=== PATIENT | female | born 1975 | race Two or more races ===

== ENCOUNTER 2017-08-07 13:14 | Emergency (ER) | payer OTHER ==
[2017-08-07 13:18] VITALS: BP 149/92; PULSE 96; TEMP 98.7; BMI 37.3
[2017-08-07 14:21] LABS: BASO % 1.1 % (0-2.0); EOS % 0.6 % (0-4.5); HEMATOCRIT 41.2 % (32.4-45.2); MCHC 33.8 g/dl (32.0-36.0); MEAN PLT VOLUME 8.3 fl (7.5-11.1); MONO % 5.8 % (3.8-10.2); NEUT % 60.5 % (42.8-82.8); PLATELET COUNT 293 K/MM3 (134-434); RBC 5.36 M/mm3 (3.60-5.2); RDW 14.4 % (11.6-15.6); WHITE BLOOD COUNT 11.1 K/mm3 (4.0-10.0)
--- NOTE | 2017-08-07 14:46 | PDOC ---
History of Present Illness - General Chief Complaint: Vaginal Bleeding Stated Complaint: BACK PAIN Time Seen by Provider: 08/07/17 13:38 History Source: Patient Exam Limitations: No Limitations - History of Present Illness Travel History: No Initial Comments: 08/07/17 14:18 42 y/o vicky with history of PCO S presents to the ED with complaints of prolonged vaginal bleeding over the past 2 weeks now causing her mild fatigue. Patient states has an appointment with Dr. Phillip oliver as scheduled by her PCP Dr. Morgan. patient was told to come here to check for anemia and the Dr. Michel is to be consult. Patient denies abdominal pain, dizziness, shortness of breath, fever or chills. Timing/Duration: reports: constant Aggravating Factors: improves with: None Alleviating Factors: improves with: None Past History - Travel Traveled outside of the country in the last 30 days: No - Past Medical History Allergies/Adverse Reactions: Allergies Allergy/AdvReac Type Severity Reaction Status Date / Time No Known Allergies Allergy Verified 08/07/17 13:19 Home Medications: Ambulatory Orders Levothyroxine [Synthroid -] 175 mcg PO DAILY 08/07/17 COPD: No Diabetes: Yes Thyroid Disease: Yes Other medical history: PCOS - Reproductive History Polycystic Ovaries: Yes - Suicide/Smoking/Psychosocial Hx Smoking History: Never smoked Patient Lives Alone: No Review of Systems - Review of Systems Able to Perform ROS?: No Constitutional: Yes: Weakness HEENTM: No: Symptoms Reported Respiratory: No: Symptoms reported Cardiac (ROS): No: Symptoms Reported, Lightheadedness ABD/GI: No: Symptoms Reported : Yes: Discharge (vaginal bleeding) Musculoskeletal: No: Symptoms Reported Integumentary: No: Symptoms Reported Neurological: Yes: Weakness Endocrine: No: Symptoms Reported *Physical Exam - Vital Signs Last Vital Signs Temp Pulse Resp BP Pulse Ox 98.7 F 96 H 18 149/92 99 08/07/17 13:16 08/07/17 13:16 08/07/17 13:16 08/07/17 13:16 08/07/17 13:16 - Physical Exam General Appearance: Yes: Nourished, Appropriately Dressed. No: Apparent Distress HEENT: positive: EOMI, JUDY. negative: Pale Conjunctivae Neck: positive: Normal Thyroid Respiratory/Chest: positive: Lungs Clear, Normal Breath Sounds. negative: Respiratory Distress, Accessory Muscle Use Cardiovascular: positive: Regular Rhythm, Regular Rate. negative: Murmur Female Pelvic Exam: positive: vaginal bleeding (dark red with grape-sized clots) , other (Pelvic exam deferred. Never sexually active) Integumentary: positive: Normal Color, Warm, Moist Neurologic: positive: Motor Strength 5/5 (ambulatory) ED Treatment Course - LABORATORY CBC & Chemistry Diagram: 08/07/17 14:12 08/07/17 14:12 - ADDITIONAL ORDERS Additional order review: 08/07/17 14:12 RBC 5.36 H MCV 77.0 L MCHC 33.8 RDW 14.4 MPV 8.3 Neutrophils % 60.5 Lymphocytes % 32.0 Monocytes % 5.8 Eosinophils % 0.6 Basophils % 1.1 Medical Decision Making - Medical Decision Making 08/07/17 14:23 Complaints of prolonged bleeding for the past 3 weeks passing large clots per vagina. Patient is pending consultation with Dr. Phillip oliver. Patient ordered for labs patient had ultrasound done on Tuesday which showed bilateral ovarian cysts. Will not repeat ultrasound this time. Patient offered Tylenol but states is not having discomfort presently. 08/07/17 14:56 Laboratory Tests 08/07/17 08/07/17 14:12 14:12 WBC 11.1 H Hgb 14.0 Hct 41.2 Plt Count 293 Neutrophils % 60.5 Sodium 136 Potassium 4.1 Chloride 103 Carbon Dioxide 28 Anion Gap 5 L BUN 17 Creatinine 0.7 Random Glucose 134 H Calcium 8.4 L Magnesium 1.9 Total Bilirubin 0.3 AST 11 L ALT 20 Alkaline Phosphatase 42 L Total Protein 7.0 Albumin 3.6 08/07/17 15:[address] Michel and I reviewed labs vital signs, and patient 's clinical presentation. She feels patient may follow-up in the office tomorrow as scheduled. Patient given copy of labs and ultrasound. Dr. morgan here and requesting to add on a CA 125. *DC/Admit/Observation/Transfer Diagnosis at time of Disposition: Excessive vaginal bleeding - Discharge Dispostion Disposition: HOME Condition at time of disposition: Good - Referrals Referrals: Santhosh Morgan MD [Primary Care Provider] - Maria Isabel Churchill DO [Staff Physician] - - Patient Instructions Printed Discharge Instructions: DI for Vaginal Bleeding Additional Instructions: Please follow up with Dr. Michel tomorrow as scheduled. Please take Motrin or Tylenol if he developed discomfort. Continue to have a diet rich in iron. Please take copy of your blood work and ultrasound with you. Return to ED if you develop any worsening symptoms. - Post Discharge Activity
[2017-08-07 14:50] LABS: ALBUMIN 3.6 g/dl (3.4-5.0); ALK PHOS 42 U/L (45-117); ANION GAP 5 (8-16); BILIRUBIN,TOTAL 0.3 mg/dL (0.2-1.0); BLOOD UREA NITROGEN 17 mg/dL (7-18); CALCIUM 8.4 mg/dL (8.5-10.1); CHLORIDE 103 mmol/L (98-107); CO2 28 mmol/L (21-32); CREATININE 0.7 mg/dL (0.55-1.02); GLUCOSE,RANDOM 134 mg/dL (74-106); MAGNESIUM 1.9 mg/dL (1.8-2.4); POTASSIUM 4.1 mmol/L (3.5-5.1); SGOT/AST 11 U/L (15-37); SGPT/ALT 20 U/L (12-78); SODIUM 136 mmol/L (136-145)
[2017-08-07 15:17] LABS: URINE APPEARANCE CLOUDY; URINE BILIRUBIN NEGATIVE (<2.0 mg/dL); URINE COLOR RED; URINE GLUCOSE (UA) 1+ (NEGATIVE); URINE KETONE NEGATIVE (NEGATIVE); URINE LEUK ESTERASE NEGATIVE (NEGATIVE); URINE NITRITE NEGATIVE (NEGATIVE); URINE UROBILINOGEN NEGATIVE mg/dL (0.2-1.0)
[2017-08-07 15:19] LABS: URINE PROTEIN 2+ (NEGATIVE)
[2017-08-07 15:27] LABS: HCG,QUALITATIVE URINE NEGATIVE
== END 2017-08-07 15:10 | disposition home or self-care (01) ==
LOC: JER 13:14
DX: N93.8 Other specified abnormal uterine and vaginal bleeding (principal); E28.2 Polycystic ovarian syndrome; E11.9 Type 2 diabetes mellitus without complications; E03.9 Hypothyroidism, unspecified
CPT/HCPCS: 36415; 80053; 81003; 81015; 83735; 84703; 85025; 86304; 87086; 99282-25

== ENCOUNTER 2017-08-24 10:26 | Day surgery (SDC) | payer OTHER ==
[2017-08-23 08:53] VITALS: BMI 37.3
--- NOTE | 2017-08-24 12:05 | HP ---
History & Physical Update - History History: No Change - Physical Physical: No Change - Assessment Assessment: No Change - Plan Plan: No Change (AUB for hysteroscopy and D&C Agree with H&P from 08/16/17)
[2017-08-24] MEDS ORDERED: ACETAMINOPHEN 325 MG TABLET (FP) PO PRN (12:10)
[2017-08-24] MEDS ORDERED: IBUPROFEN 800 MG/8 ML IJ IVPB PRN (12:10)
[2017-08-24] MEDS ORDERED: MIDAZOLAM HCL 2 MG/2 ML SINGLE DOSE VIAL ONE ×2 (12:13)
[2017-08-24] MEDS ORDERED: LACTATED RINGERS SOLUTION 1,000 ML IV SCH (12:15)
[2017-08-24] MEDS ORDERED: SUCCINYLCHOLINE CHLORIDE 200 MG/10 ML VIAL ONE (12:24)
[2017-08-24] MEDS ORDERED: PROPOFOL 20 ML ONE (12:24)
--- NOTE | 2017-08-24 12:58 | OP ---
Operative Note - Note: Operative Date: 08/24/17 Pre-Operative Diagnosis: AUB, PCOS Operation: hysteroscopy, D&C Findings: normal intrauterine cavity bilateral tubal ostea noted Post-Operative Diagnosis: Same as Pre-op Surgeon: Maria Isabel Churchill Anesthesiologist/WEB KNITTER: Malinda Martins MD Anesthesia: General (with LMA) Operative Report Dictated: Yes
[2017-08-24 13:52] LABS: BASO % 0.8 % (0-2.0); EOS % 0.5 % (0-4.5); HEMATOCRIT 33.6 % (32.4-45.2); HEMOGLOBIN 11.2 GM/dL (10.7-15.3); LYMPH % 34.1 % (8-40); MCH 26.1 pg (25.7-33.7); MCHC 33.4 g/dl (32.0-36.0); MEAN CELL VOLUME 78.2 fl (80-96); MEAN PLT VOLUME 7.9 fl (7.5-11.1); MONO % 5.8 % (3.8-10.2); NEUT % 58.8 % (42.8-82.8); PLATELET COUNT 290 K/MM3 (134-434); WHITE BLOOD COUNT 6.4 K/mm3 (4.0-10.0)
[2017-08-24 15:27] VITALS: BP 108/72; PULSE 87; TEMP 98
--- NOTE | 2017-08-24 19:50 | OP ---
DATE OF OPERATION: 08/24/2017 PREOPERATIVE DIAGNOSIS: Abnormal uterine bleeding. POSTOPERATIVE DIAGNOSIS: Abnormal uterine bleeding. PROCEDURE: Diagnostic hysteroscopy, dilation and curettage. SURGEON: Maria Isabel Churchill M.D. ANESTHESIA: LMA. ANESTHESIOLOGIST: Malinda Martins M.D. ESTIMATED BLOOD LOSS: Approximately 10 mL. COMPLICATIONS: None. FINDINGS: Normal intrauterine cavity with bilateral tubal ostia noted. DISPOSITION: Stable to PACU. COUNTS: Sponge, needle, and instrument count correct at the end of the case. BRIEF HISTORY AND PROCEDURE: The patient is a 42-year-old female who had been seen in the office with complaints of abnormal uterine bleeding. Patient has a known diagnosis of polycystic ovarian syndrome with normal cycles over the past several years, however a recent episode of abnormal bleeding started approximately 1 month prior to her visit in the office with me. After discussing the options in the office, plan was made for a diagnostic hysteroscopy as well as D and C for sampling of the uterine cavity. Consents for the procedure were signed in the office. The consents were signed in the office. The patient was then admitted to [facility] outpatient surgical unit on August 24, 2017. Consents for the procedure were confirmed. The patient was then taken back to the operating room where she was given general anesthesia using LMA. She was then placed in the dorsal lithotomy position. She was prepped and draped in the usual sterile fashion. Then a hard timeout was then performed. A speculum was placed inside the vagina. The cervix was easily visualized. The anterior lip was grasped with a tenaculum, and the cervix was serially dilated to accommodate a diagnostic hysteroscope, which was advanced to the fundus. Bilateral tubal ostia were noted upon entry into the uterine cavity, and no intrauterine pathology such as polyps or fibroids were appreciated. Sharp curettage on all 4 gonzales of the uterus as well as suction D and C was performed. One final look with the hysteroscope was completed to evaluate the uterine cavity. No uterine trauma or perforation was appreciated. All instruments were removed from the vagina. A small hymenal tear was appreciated, which was repaired with a 4-0 Biosyn suture and a single [id number] suture. Sponge and instrument count, and needle count was correct. The patient was then awoken from anesthesia and recovered in a stable condition in the PACU at the time of this dictation. MARIA ISABEL CHURCHILL DO /[id number] MTDD
--- NOTE | 2017-08-25 15:45 | PATH ---
Surgical Pathology Report Patient Name: CLAUDETTE SOUSA Med. Rec. #: [id number] /Age/Gender: 1975 (Age: 42) / F Account: [id number] Location: [facility] Taken: 08/24/2017 Received: 08/24/2017 Reported: 08/25/2017 Physicians: Maria Isabel Churchill M.D. Specimen(s) Received ENDOMETRIAL CURETTINGS Clinical History Abnormal uterine bleeding Final Diagnosis ENDOMETRIAL CURETTINGS, DILATION AND CURETTAGE: FRAGMENTS OF DISORDERED PROLIFERATIVE ENDOMETRIUM AND BENIGN ENDOCERVICAL TISSUE. Electronically Signed Mary Lowery M.D. Gross Description Received in formalin labeled "endometrial curettings," is a 4.0 x 2.6 x 0.3 cm aggregate of juárez-red soft tissue fragments admixed with mucus. The formalin is filtered and the specimen is entirely submitted in 2 cassettes. /08/25/2017 saudi/08/25/2017
== END 2017-08-24 15:00 | disposition home or self-care (01) ==
LOC: JASU-SURG 10:26
PROVIDERS: ATTEND Obstetrics & Gynecology
PROC: 0UDB8ZX Extraction of Endometrium, Via Natural or Artificial Opening Endoscopic, Diagnostic (ICD-10-PCS; principal; 2017-08-24 12:00)
DX: N93.9 Abnormal uterine and vaginal bleeding, unspecified (principal)
CPT/HCPCS: 36415; 84703; 85025; 86850; 86900; 86901; 88305-TC; 94760

== ENCOUNTER 2018-06-06 13:13 | Emergency (ER) | payer OTHER ==
[2018-06-06 13:37] VITALS: BMI 31.6
--- NOTE | 2018-06-06 13:47 | PDOC ---
History of Present Illness - General Chief Complaint: Edema Stated Complaint: RT LEG PAIN Time Seen by Provider: 06/06/18 13:33 History Source: Patient - History of Present Illness Occurred: reports: other Lower Extremity Pain Location: right: leg Past History - Past Medical History Allergies/Adverse Reactions: Allergies Allergy/AdvReac Type Severity Reaction Status Date / Time No Known Allergies Allergy Verified 06/06/18 13:37 Home Medications: Ambulatory Orders Levothyroxine [Synthroid -] 175 mcg PO DAILY 08/07/17 Cholecalciferol (Vitamin D3) [Vitamin D] 2,000 unit PO DAILY 08/23/17 Spironolactone [Aldactone] 200 mg PO DAILY 08/23/17 metFORMIN HCL [Metformin HCl ER] 1,000 mg PO BID 08/23/17 Ascorbic Acid [Vitamin C -] 500 mg PO DAILY 06/06/18 Calcium Citrate/Vitamin D3 [Calcium Citrate - Vit D3 Tab] 2 tab PO BID 06/06/18 Dapagliflozin Propanediol [Farxiga] 5 mg PO BID 06/06/18 Linaclotide [Linzess] 290 mcg PO DAILY 06/06/18 Meloxicam [Mobic] 15 mg PO DAILY 06/06/18 Mupirocin Ointment [Bactroban] 1 applic TP BID 06/06/18 Nebivolol [Bystolic -] 10 mg PO HS 06/06/18 Semaglutide [Ozempic] 0.25 mg SQ WEEKLY 06/06/18 oxyCODONE SR [Oxycontin] 5 mg PO PRN PRN 06/06/18 Anemia: No Asthma: No Cancer: No Cardiac Disorders: No CVA: No COPD: No CHF: No Dementia: No Diabetes: Yes GI Disorders: No Disorders: (PCOS) HTN: No Hypercholesterolemia: No Liver Disease: No Seizures: No Thyroid Disease: Yes - Reproductive History Polycystic Ovaries: Yes - Suicide/Smoking/Psychosocial Hx Smoking History: Never smoked Hx Alcohol Use: No Drug/Substance Use Hx: No Substance Use Type: None Hx Substance Use Treatment: No Review of Systems - Review of Systems Constitutional: No: Chills, Fever Respiratory: No: Shortness of Breath Cardiac (ROS): No: Chest Pain, Palpitations *Physical Exam - Vital Signs Last Vital Signs Temp Pulse Resp BP Pulse Ox 98.5 F 100 H 18 114/79 100 06/06/18 13:29 06/06/18 13:29 06/06/18 13:29 06/06/18 13:29 06/06/18 13:29 - Physical Exam General Appearance: Yes: Appropriately Dressed. No: Apparent Distress Neck: positive: Supple Respiratory/Chest: positive: Lungs Clear, Normal Breath Sounds. negative: Respiratory Distress Cardiovascular: positive: Regular Rate, S1, S2 Extremity: positive: Other (RLE devie intact, no sig swelling of RLE compared to L, no skin changes, pedal pulses and sensation intact) Integumentary: positive: Dry, Warm Neurologic: positive: Fully Oriented, Alert, Normal Mood/Affect Moderate Sedation - Procedure Monitoring Vital Signs: Procedure Monitoring Vital Signs Temperature 98.5 F 06/06/18 13:29 Pulse Rate 100 H 06/06/18 13:29 Respiratory Rate 18 06/06/18 13:29 Blood Pressure 114/79 06/06/18 13:29 O2 Sat by Pulse Oximetry (%) 100 06/06/18 13:29 Medical Decision Making - Medical Decision Making 06/06/18 15:38 43-year-old female s/pt procedure for 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 No fever, chills, and denies shortness of breath, palpitations or chest pain. See exam R/o DVT s/p ortho surgery 1 month ago at [facility] No e/o infection or compartment syndrome US done and neg for DVT, + for bakers cyst (pt has no pain to popliteal area) -will dc to continue taking tyenol as needed and to f/u with ortho next week *DC/Admit/Observation/Transfer Diagnosis at time of Disposition: Right leg pain - Discharge Dispostion Disposition: HOME Condition at time of disposition: Good - Referrals - Patient Instructions Printed Discharge Instructions: DI for Frederick's Cyst Additional Instructions: Your ultrasound shows that you have a popliteal cyst behind your right knee. There was no evidence of blood clot. There is also no evidence of infection or compartment syndrome on exam. Please continue taking your Tylenol as needed for pain and follow-up with her orthopedic surgery at your scheduled appointment next Tuesday - Post Discharge Activity
[2018-06-06 15:50] VITALS: BP 125/96; PULSE 78; TEMP 97.6
== END 2018-06-06 15:48 | disposition home or self-care (01) ==
LOC: JER 13:13
DX: M71.21 Synovial cyst of popliteal space [Baker], right knee (principal); M19.93 Secondary osteoarthritis, unspecified site; Z98.890 Other specified postprocedural states; E11.9 Type 2 diabetes mellitus without complications; Z79.84 Long term (current) use of oral hypoglycemic drugs; E28.2 Polycystic ovarian syndrome; E07.9 Disorder of thyroid, unspecified
CPT/HCPCS: 93971-TC; 99283-25

== ENCOUNTER 2018-07-08 19:33 | Emergency (ER) | payer OTHER ==
[2018-07-08 19:51] VITALS: BP 112/77; PULSE 76; TEMP 97.3; BMI 39.5
--- NOTE | 2018-07-08 20:12 | PDOC ---
History of Present Illness - General Chief Complaint: Edema Stated Complaint: KNEE SWELLING/PAIN Time Seen by Provider: 07/08/18 20:00 History Source: Patient Exam Limitations: No Limitations - History of Present Illness Initial Comments: 07/08/18 20:10 HISTORY OF PRESENT ILLNESS: This is a 44-year-old woman status post procedure for acquiring angulation of the right tibia secondary osteoarthritis. [facility]. Patient is here for evaluation of increased swelling and pain right lower leg. Patient denies fevers, chills, shortness of breath, palpitations and chest pain. No recent travel or sick contacts. PAST MEDICAL HISTORY: Denies past medical history SURGICAL HISTORY: see HPI ALLERGIES: No known drug allergies REVIEW OF SYSTEMS General/Constitutional: Denies fever or chills. Denies weakness, weight change. HEENT: Denies change in vision. Denies ear pain or discharge. Denies sore throat. Cardiovascular: Denies chest pain or shortness of breath. Respiratory: Denies cough, wheezing, or hemoptysis. Gastrointestinal: Denies nausea, vomiting, diarrhea or constipation. Denies rectal bleeding. Genitourinary: Denies dysuria, frequency, or change in urination. Musculoskeletal: see HPI Skin and breasts: Denies rash or easy bruising. Neurologic: Denies headache, vertigo, loss of consciousness, or loss of sensation. Psychiatric: Denies depression or anxiety. Endocrine: Denies increased thirst. Denies abnormal weight change. Hematologic/Lymphatic: Denies anemia, easy bleeding, or history of blood clots. Allergic/Immunologic: Denies hives or skin allergy. Denies latex allergy. PHYSICAL EXAM General Appearance: Well-appearing, appropriately dressed. No apparent distress , no intoxication. Vascular Pulses: Dorsalis-Pedis (R): 2+, Dorsalis-Pedis (L): 2+ Musculoskeletal/Extremities: Right lower extremity swollen from knee to ankle. No pitting present. No signs of infection noted. No signs of compartment syndrome noted. External fixation hardware in place. Integumentary: Appropriate color, dry, warm. No cyanosis, erythema, jaundice or rash Neurologic: playroom attendant II-XII intact. Fully oriented, alert. Appropriate mood/affect. Motor strength 5/5. No appreciable EOM palsy, facial droop or sensory deficit. Full sensation to bilateral lower extremities. 07/08/18 20:14 07/11/18 12:36 Past History - Past Medical History Allergies/Adverse Reactions: Allergies Allergy/AdvReac Type Severity Reaction Status Date / Time No Known Allergies Allergy Verified 07/08/18 19:51 Home Medications: Ambulatory Orders Levothyroxine [Synthroid -] 175 mcg PO DAILY 08/07/17 Cholecalciferol (Vitamin D3) [Vitamin D] 2,000 unit PO DAILY 08/23/17 Spironolactone [Aldactone] 200 mg PO DAILY 08/23/17 metFORMIN HCL [Metformin HCl ER] 1,000 mg PO BID 08/23/17 Ascorbic Acid [Vitamin C -] 500 mg PO DAILY 06/06/18 Calcium Citrate/Vitamin D3 [Calcium Citrate - Vit D3 Tab] 2 tab PO BID 06/06/18 Dapagliflozin Propanediol [Farxiga] 5 mg PO BID 06/06/18 Linaclotide [Linzess] 290 mcg PO DAILY 06/06/18 Meloxicam [Mobic] 15 mg PO DAILY 06/06/18 Mupirocin Ointment [Bactroban] 1 applic TP BID 06/06/18 Nebivolol [Bystolic -] 10 mg PO HS 06/06/18 Semaglutide [Ozempic] 0.25 mg SQ WEEKLY 06/06/18 oxyCODONE SR [Oxycontin] 5 mg PO PRN PRN 06/06/18 Apixaban [Eliquis -] 10 mg PO BID #13 tablet 07/08/18 Anemia: No Asthma: No Cancer: No Cardiac Disorders: No CVA: No COPD: No CHF: No Dementia: No Diabetes: Yes GI Disorders: No Disorders: (PCOS) HTN: No Hypercholesterolemia: No Liver Disease: No Seizures: No Thyroid Disease: Yes - Reproductive History Polycystic Ovaries: Yes - Suicide/Smoking/Psychosocial Hx Smoking History: Never smoked Have you smoked in the past 12 months: No Information on smoking cessation initiated: No Hx Alcohol Use: No Drug/Substance Use Hx: No Substance Use Type: None Hx Substance Use Treatment: No *Physical Exam - Vital Signs Last Vital Signs Temp Pulse Resp BP Pulse Ox 97.3 F L 76 16 112/77 100 07/08/18 19:49 07/08/18 19:49 07/08/18 19:49 07/08/18 19:49 07/08/18 19:49 ED Treatment Course - LABORATORY CBC & Chemistry Diagram: 07/08/18 21:03 07/08/18 21:03 Medical Decision Making - Medical Decision Making 07/08/18 20:12 A/P: 43-year-old woman with atraumatic right lower leg swelling No signs and symptoms of compartment syndrome or infection Basic labs Right lower extremity Doppler Right lower extremity x-ray Patient is refusing analgesics at this time. Reassess 07/08/18 20:21 Case been discussed with the patient's orthopedic surgeon who recommends only DVT and to forego x-rays at this time. Patient is aware of discussion and agrees to that plan. 07/08/18 22:09 Ultrasound as read by imaging remote control mirror installer: There is deep vein thrombosis right lower extremity venous system involving the distal femoral vein, popliteal vein and extending into the posterior tibial pain. There is incomplete compression of the veins at this level. Otherwise a deep venous system is patent. Case is been discussed with Dr. Garcias who recommends outpatient treatment with Eliquis 10 mg twice a day for the first week followed by 5 mg twice a day thereafter. I will discharge the patient home with the first week of Eliquis prescription. She will follow up with her primary doctor for continued evaluation. Her primary doctor was in the emergency Department with her and is aware of all results. 07/11/18 12:36 *DC/Admit/Observation/Transfer Diagnosis at time of Disposition: DVT (deep venous thrombosis) Qualifiers: DVT location: lower extremity Affected thrombotic vein of extremity: popliteal Chronicity: acute Laterality: right Qualified Code(s): I82.431 - Acute embolism and thrombosis of right popliteal vein - Discharge Dispostion Disposition: HOME Condition at time of disposition: Fair Decision to Admit order: No - Prescriptions Prescriptions: Apixaban [Eliquis -] 10 mg PO BID #13 tablet - Referrals Referrals: Santhosh Morgan MD [Primary Care Provider] - - Patient Instructions Additional Instructions: Take Eliquis 10 mg twice a day for the first week. After the first week the dosage will change. Follow-up to primary doctor for continued prescription. Return to emergency department for chest pain, chest tightness, shortness of breath, nausea, vomiting, dizziness or for any other concerns. Follow-up with the orthopedic surgeon on Tuesday as previously scheduled. Thank you very much for choosing us to provide your emergent health care needs. - Post Discharge Activity
[2018-07-08 21:08] LABS: BASO % 1.2 % (0-2.0); EOS % 1.1 % (0-4.5); HEMATOCRIT 44.1 % (32.4-45.2); HEMOGLOBIN 14.3 GM/dL (10.7-15.3); LYMPH % 41.7 % (8-40); MCH 23.9 pg (25.7-33.7); MCHC 32.3 g/dl (32.0-36.0); MEAN CELL VOLUME 74.1 fl (80-96); MEAN PLT VOLUME 8.6 fl (7.5-11.1); MONO % 6.9 % (3.8-10.2); NEUT % 49.1 % (42.8-82.8); PLATELET COUNT 266 K/MM3 (134-434); RBC 5.96 M/mm3 (3.60-5.2); RDW 16.4 % (11.6-15.6); WHITE BLOOD COUNT 8.7 K/mm3 (4.0-10.0)
[2018-07-08 21:50] LABS: ALBUMIN 3.9 g/dl (3.4-5.0); ALK PHOS 58 U/L (45-117); ANION GAP 8 MMOL/L (8-16); BILIRUBIN,TOTAL 0.2 mg/dL (0.2-1); BLOOD UREA NITROGEN 19 mg/dL (7-18); CALCIUM 9.3 mg/dL (8.5-10.1); CHLORIDE 104 mmol/L (98-107); CO2 22 mmol/L (21-32); CREATININE 0.6 mg/dL (0.55-1.3); GLUCOSE,RANDOM 86 mg/dL (74-106); POTASSIUM 4.2 mmol/L (3.5-5.1); SGOT/AST 15 U/L (15-37); SGPT/ALT 22 U/L (13-61); SODIUM 134 mmol/L (136-145); TOT PROT 7.6 g/dl (6.4-8.2)
[2018-07-08] MEDS ORDERED: APIXABAN 5 MG TABLET PO ONE ×4 (22:07→22:15)
== END 2018-07-08 22:20 | disposition home or self-care (01) ==
LOC: JER 19:33
DX: I82.431 Acute embolism and thrombosis of right popliteal vein (principal); I82.411 Acute embolism and thrombosis of right femoral vein; Z98.890 Other specified postprocedural states; E11.9 Type 2 diabetes mellitus without complications; Z79.84 Long term (current) use of oral hypoglycemic drugs; E03.9 Hypothyroidism, unspecified; E28.2 Polycystic ovarian syndrome
CPT/HCPCS: 36415; 80053; 85025; 93971-TC; 99282-25

== ENCOUNTER 2022-10-29 13:12 | Emergency (ER) | payer OTHER ==
[2022-10-29 13:22] VITALS: TEMP 98.7; BMI 41.6
[2022-10-29] MEDS ORDERED: METOCLOPRAMIDE HCL INJECTION 10 MG/2 ML VIAL IVPUSH ONE (13:47)
[2022-10-29] MEDS ORDERED: ACETAMINOPHEN 1000 MG/100 ML BAG IVPB ONE (13:47)
[2022-10-29] MEDS ORDERED: LACTATED RINGERS SOLUTION 1000 ML INFUS.BAG IV ONE ×2 (13:47→15:21)
[2022-10-29] MEDS ORDERED: MECLIZINE HCL 25 MG TABLET (FP) PO ONE (13:52)
[2022-10-29] MEDS ORDERED: MECLIZINE HCL 25 MG TABLET (FP) ONE (13:57)
[2022-10-29] MEDS ORDERED: ACETAMINOPHEN INJECTION 100 ML IVPB ONE (13:58)
[2022-10-29] MEDS ORDERED: METOCLOPRAMIDE HCL INJECTION 10 MG/2 ML VIAL ONE (13:58)
[2022-10-29 14:39] LABS: BASO % 0.4 % (0-2.0); EOS % 0.3 % (0-4.5); HEMATOCRIT 43.4 % (32.4-45.2); HEMOGLOBIN 14.4 GM/dL (10.7-15.3); LYMPH % 19.1 % (8-40); MCH 24.6 pg (25.7-33.7); MCHC 33.2 g/dl (32.0-36.0); MEAN CELL VOLUME 74.1 fl (80-96); MEAN PLT VOLUME 8.2 fl (7.5-11.1); MONO % 3.9 % (3.8-10.2); NEUT % 76.3 % (42.8-82.8); PLATELET COUNT 250 10^3/uL (134-434); RBC 5.86 M/mm3 (3.60-5.2); RDW 14.1 % (11.6-15.6); WHITE BLOOD COUNT 6.1 K/mm3 (4.0-10.0)
[2022-10-29 14:46] LABS: INR 1.11 (0.83-1.09); PROTHROMBIN TIME (PATIENT) 12.9 SEC (9.7-13.0)
[2022-10-29 14:49] LABS: ACTIVATED PTT 26.6 SECONDS (25.2-36.5)
[2022-10-29 14:51] LABS: POTASSIUM 3.8 mmol/L (3.5-5.1)
[2022-10-29 14:53] LABS: BLOOD UREA NITROGEN 14.6 mg/dL (7-18); CALCIUM 8.9 mg/dL (8.5-10.1)
[2022-10-29 14:54] LABS: ALBUMIN 3.7 g/dl (3.4-5.0); MAGNESIUM 1.5 mg/dL (1.8-2.4)
[2022-10-29 14:57] LABS: CREATININE 0.7 mg/dL (0.55-1.3)
[2022-10-29 14:58] LABS: BILIRUBIN,TOTAL 0.5 mg/dL (0.2-1); TOT PROT 7.4 g/dl (6.4-8.2)
[2022-10-29] MEDS ORDERED: LORazepam 2 MG/ML SDV VIAL IVPUSH ONE (15:20)
[2022-10-29 18:29] LABS: EPI CELLS 26 /uL (0-25.1); HYALINE CASTS 1 /uL (0-3.1); URINE APPEARANCE CLEAR; URINE BACTERIA 1966 /uL (0-1359); URINE BILIRUBIN NEGATIVE (NEGATIVE); URINE COLOR YELLOW; URINE GLUCOSE (UA) 3+ (NEGATIVE); URINE KETONE 3+ (NEGATIVE); URINE LEUK ESTERASE TRACE (NEGATIVE); URINE NITRITE NEGATIVE (NEGATIVE); URINE PROTEIN NEGATIVE (NEGATIVE); URINE UROBILINOGEN 0.2 mg/dL (0.2-1.0); URINE WBC 138 /uL (0-25.8)
[2022-10-29 18:30] LABS: URINE RBC 57.4 /uL (0-23.9)
[2022-10-29 18:58] VITALS: BP 149/86; PULSE 70; RESP 17
== END 2022-10-29 19:03 | disposition home or self-care (01) ==
LOC: JER 13:12
PROC: 3E033GC Introduction of Other Therapeutic Substance into Peripheral Vein, Percutaneous Approach (ICD-10-PCS; principal; 2022-10-29)
DX: R42 Dizziness and giddiness (principal); R11.2 Nausea with vomiting, unspecified; R51.9 Headache, unspecified; N39.0 Urinary tract infection, site not specified
CPT/HCPCS: 36415; 70551-TC; 80053; 81003; 82962; 83735; 84439; 84443; 84703; 85025; 85610; 85730; 86618; 86850; 86900; 86901; 87086; 93005; 93010; 99285-25

== ENCOUNTER 2024-03-04 10:50 | Emergency (ER) | payer OTHER ==
[2024-03-04 10:57] VITALS: BP 179/102; PULSE 80; RESP 18; TEMP 97.3; BMI 43.0
[2024-03-04] MEDS ORDERED: ACETAMINOPHEN 500 MG TABLET (FP) ONE (12:18)
[2024-03-04] MEDS ORDERED: METHOCARBAMOL 500 MG TABLET ONE (12:18)
[2024-03-04] MEDS: METHOCARBAMOL 500 MG TABLET PO ONE (12:21)
[2024-03-04] MEDS: ACETAMINOPHEN 500 MG TABLET (FP) PO ONE (12:21)
== END 2024-03-04 14:21 | disposition home or self-care (01) ==
LOC: JERFT 10:50 → JER 10:50 → JERFT 14:21
DX: M71.21 Synovial cyst of popliteal space [Baker], right knee (principal); M25.561 Pain in right knee; M79.661 Pain in right lower leg
CPT/HCPCS: 93971-TC; 99284-25